=== PATIENT | male | born 1960 | race Caucasian/White ===

== ENCOUNTER 2016-10-10 19:44 | Inpatient (IN) | payer BC, OTHER ==
[~2016-10-10] VITALS: Ht 172.7 cm; Wt 86.2 kg
--- NOTE | 2016-10-10 19:50 | NUR ---
Pre-Admission Note: Patient assessed in intake office at 19:50 on 10/10/2016. Patient is ambulatory with steady gait, stable, A&OX4. Patient states that he is here to safely detox from opiates. VS: 163/97, 83, 98.5, 18, 97% Spo2 on RA. Patient reports 7/10 back pain, reports that he had back surgery this year. Patient reports NKDA/NKFA. Patient instructed on unit protocol of vitals Q4H and COWS/CIWA assessments. Patient verbalized understanding and agreement. Patient also instructed on policy regarding destruction of any controlled substances/prescriptions brought to facility, and handling of all medications. Patient verbalized understanding and agreement. Will complete admission assessment when patient is brought up to unit. Addendum: 10/11/16 at 0141 by CLAYTON LOMAS RN INCORRECT TIME IN ABOVE NOTE: CORRECT TIME IS 21:50
[2016-10-10] MEDS ORDERED: DICYCLOMINE HCL 20 MG TABLET PO PRN (21:45)
[2016-10-10] MEDS ORDERED: MAG HYDROX/AL HYDROX/SIMETH 30 ML LIQUID UDC PO PRN (21:45)
[2016-10-10] MEDS ORDERED: HYDROXYZINE PAMOATE 25 MG CAPSULE PO PRN (21:45)
[2016-10-10] MEDS ORDERED: LORAZEPAM 1 MG TABLET PO PRN (21:45)
[2016-10-10] MEDS ORDERED: ONDANSETRON 4 MG/2 ML VIAL IM PRN (21:45)
[2016-10-10] MEDS ORDERED: ONDANSETRON ODT 4 MG TAB.RAPDIS SL PRN (21:45)
[2016-10-10] MEDS ORDERED: MIRALAX 17 GM POWD.PACK PO PRN (21:45)
[2016-10-10] MEDS ORDERED: IBUPROFEN 600 MG TABLET PO PRN (21:45)
[2016-10-10] MEDS ORDERED: LOPERAMIDE HCL 2 MG CAPSULE PO PRN ×2 (21:45)
--- NOTE | 2016-10-10 22:05 | NUR ---
ADMISSION NOTE: NEW ADMISSION IS A 55 YO MALE [facility] AT [facility]05 ON 10/10/16; PRE-ADMISSION ASSESSMENT COMPLETED INTAKE OFFICE. UDS RESULTED POSITIVE FOR OPIATES AND CANNABINOIDS. VS: 163/97, 83, 98.5, 18, 97% SPO2 ON RA. COWS IS 7: SLIGHTLY INCREASED HR, GOOSEFLESH, ANXIETY, PAIN . HEIGHT IS 5'8 AND WEIGHT BY STANDING SCALE IS 190 LBS. PT REPORTS NKDA/NKFA. PT REPORTS PCP IS DR KING IN [place], AND SURGEON FOR BACK IS DR RODRIGUEZ IN [place]. PT ADMITTED UNDER THE CARE OF DR ZAMORA. PT REPORTS THE FOLLOWING SUBSTANCE USE: PT REPORTS TAKING 80MG DILAUDID DAILY FOR OVER 3 YEARS; PT REPORTS BEING PRESCRIBED DILUADID FOR BACK AND NECK INJURIES AND SURGERY; LAST USE WAS 80MG ON 09/25/16. PT REPORTS THAT WHEN HE RAIN OUT OF DILAUDID, HE BEGAN USING ABOUT 1GM OF IV HEROIN DAILY FOR 5 DAYS; LAST USE WAS 1GM ON 10/09/16. PT REPORTS THAT HE TOOK 10MG METHADONE X1 AT 04:00 ON 10/10/16 TO HOLD HIM OVER UNTIL HE COULD GET INTO DETOX. PT ALSO REPORT THAT HE HAS A PRESCRIPTION FOR SOMA AND CODEINE, BUT ONLY USES ON AN INTERMITTENT, NON-DAILY BASIS BECAUSE HE STATES, "I DON'T LIKE THE WAY THEY MAKE ME FEEL". PT ALSO REPORTS SMOKING AN UNKNOWN AMOUNT OF MARIJUANA ON A DAILY BASIS. PT REPORTS THAT HE SMOKES ABOUT 20 CIGARETTES DAILY, FOR 20+ YEARS. WRITTEN SMOKING CESSATION EDUCATION PROVIDED. PT VERBALIZES UNDERSTANDING. PT REPORTS ATTENDING [facility] IN [place] WHEN HE WAS 21 Y/O. PT REPORTS PMHX OF BACK AND NECK INJURIES R/T FALLS; SURGICAL HX: BACK (2017) AND NECK (2013) SURGERY, HERNIA REPAIR (2001). PT DENIES A HX OF WITHDRAWAL INDUCED SZ. PT IS AMBULATORY WITH STEADY GAIT. PT IS A&OX4. SKIN ASSESSMENT: INTACT. PT DENIES CURRENT OR HX OF SI/HI. LUNGS ARE CTA THROUGHOUT, RESPIRATIONS ARE EVEN AND UNLABORED. PT DENIES COUGH. HEART SOUNDS REGULAR. BOWEL SOUNDS ACTIVE IN ALL QUADRANTS; PT REPORTS LAST BM ON 10/10/16 AND DENIES CONSTIPATION WITH OPIATE ABUSE. ABDOMEN IS SOFT, NON-DISTENDED, NON-TENDER. Addendum: 10/11/16 at 0250 by CLAYTON LOMAS RN Pt reports drinking 6 beers daily during the week and 8-9 beers daily on weekends
[2016-10-10 22:33] VITALS: BP 163/97
[2016-10-10] MEDS ORDERED: LORAZEPAM 1 MG TABLET ONE (22:51)
[2016-10-10] MEDS ORDERED: CLONIDINE HCL 0.1 MG TABLET ONE (22:52)
[2016-10-10] MEDS ORDERED: LORAZEPAM 1 MG TABLET PO ONE (23:00)
[2016-10-10 23:12] LABS: BASOPHILS # (AUTO) 0.1 K/uL (0.0-8.0); BASOPHILS % (AUTO) 0.7 % (0.0-2.0); EOSINOPHILS # (AUTO) 0.3 K/uL (0.0-0.7); EOSINOPHILS % (AUTO) 3.4 % (0.0-7.0); HEMATOCRIT 46.2 % (40-50); HEMOGLOBIN 15.6 G/DL (14.0-18.0); LYMPHOCYTES # (AUTO) 1.9 K/UL (0.8-4.8); LYMPHOCYTES % (AUTO) 20.1 % (20.5-51.5); MEAN CORPUSCULAR HEMOGLOBIN 30.1 UUG (27.0-31.0); MEAN CORPUSCULAR HGB CONC 34 g/dL (32.0-37.0); MEAN CORPUSCULAR VOLUME 88.9 FL (82.0-92.0); MONOCYTES # (AUTO) 0.6 K/UL (0.1-1.30); MONOCYTES % (AUTO) 6.9 % (0.0-11.0); NEUTROPHILS # (AUTO) 6.3 K/UL (1.8-8.9); NEUTROPHILS % (AUTO) 68.9 % (38.5-71.5); PLATELET COUNT (AUTO) 242 K/UL (150-450); RED BLOOD CELL COUNT(AUTO) 5.19 MIL/UL (4.7-6.1); WHITE BLOOD COUNT (AUTO) 9.2 K/UL (4.0-11.2)
[2016-10-10 23:27] LABS: ALANINE AMINOTRANSFERASE 30 U/L (16-63); ALKALINE PHOSPHATASE 93 U/L (50-136); ASPARTATE AMINOTRANSFERASE 17 U/L (15-37); BILIRUBIN,TOTAL 0.4 mg/dL (0.2-1.0); CARBON DIOXIDE 29 mmol/L (21-32); CHLORIDE 102 mmol/L (98-107); CREATININE 0.8 mg/dL (0.6-1.3); GLUCOSE 83 mg/dL (74-106); MAGNESIUM 1.9 mg/dL (1.8-2.4); POTASSIUM 3.9 mmol/L (3.5-5.1); TOTAL PROTEIN, SERUM 7.9 g/dL (6.4-8.2); UREA NITROGEN, BLOOD 15 mg/dL (7-18)
[2016-10-10 23:27] LABS: *AMPHETAMINE, URINE NEGATIVE (NEGATIVE); *BARBITURATE, URINE NEGATIVE (NEGATIVE); *CANNABINOID, URINE POSITIVE (NEGATIVE); *COCCAINE, URINE NEGATIVE (NEGATIVE); *OPIATE, URINE POSITIVE (NEGATIVE); *PHENCYCLIDINE SCREEN,URINE NEGATIVE (NEGATIVE)
[2016-10-10 23:29] LABS: ETHANOL < 3 MG/DL (0-0)
[2016-10-10] MEDS: CLONIDINE HCL 0.1 MG TABLET PO PRN (23:34)
--- NOTE | 2016-10-10 23:34 | NUR ---
PRN Clonidine: Patient c/o anxiety. BP is 163/97. Administered PRN Clonidine as ordered. Will continue to monitor.
[2016-10-11] VITALS: BP 115/81
--- NOTE | 2016-10-11 | NUR ---
COWS Deferred: 00:00 COWS is deferred for sleep. V/S stable. All safety precautions are in place. Will continue to monitor. Addendum: 10/11/16 at 0229 by CLAYTON LOMAS RN Amended: Links added.
--- NOTE | 2016-10-11 00:35 | NUR ---
PRN Reassessment: Pt is in bed with eyes closed. Respirations are even and unlabored. No s/s of acute distress noted. PRN Clonidine effective.
--- NOTE | 2016-10-11 04:00 | NUR ---
V/S Refused, COWS Deferred: Patient refuses 04:00 V/S. COWS is deferred for sleep. All safety precautions are in place. Will continue to monitor Addendum: 10/11/16 at 0417 by CLAYTON LOMAS RN Amended: Links added.
--- NOTE | 2016-10-11 06:56 | NUR ---
End of Shift Note: Pt is a 55 y/o male admitted to [facility] last night for medically-supervised withdrawal from opiates and ETOH. Pt reported a PMHx of neck and back injury with surgical repair (2011, 2016). Pt is a full code. Pt reports NKDA/NKFA. Pt is on a regular diet. Pt reported using 80mg Dilaudid daily and when he ran out, used 1gm IV heroin daily for 5 days, and 10mg Methadone x1. Pt also reported drinking 6-9 beers daily. Pt is not yet on a scheduled medication taper, to assess this morning. Scheduled medication regime managed s/s of withdrawal this shift, in addition to PRN Clonidine for anxiety and elevated BP. Last COWS=7 at 00:00. V/S stable throughout shift. Total fluid intake this shift: 300 ml; output: urine x 2 and BM x 0. Pt is currently in bed and slept 5 hours this shift. All needs have been attended and met. Pt endorsed to day shift nurse.
--- NOTE | 2016-10-11 07:50 | NUR ---
START OF SHIFT NOTE Received pt in bed awake and states he cant sleep he is just laying down. He reports hold/cold flashes and feeling "crappy." PRN Clonidine given per night nurse. COWS 7 per night nurse. He slept 5 hours last night. Encouraged pt to increase fluid intake. Encouraged pt to rest this shift. Will monitor closely.
[2016-10-11 08:00] VITALS: BP 146/92
[2016-10-11] MEDS: METHOCARBAMOL 750 MG TABLET PO PRN ×2 (08:52→20:23)
[2016-10-11] MEDS: CLONIDINE HCL 0.1 MG TABLET PO PRN (08:52)
[2016-10-11] MEDS: MULTIVITAMINS,THERAPEUTIC TABLET PO SCH (08:52)
[2016-10-11] MEDS ORDERED: BUPRENORPHINE HCL 2 MG TAB.SUBL SL PRN (09:00)
[2016-10-11] MEDS ORDERED: TUBERCULIN,PURIF.PROT.DERIV. 5 TU/0.1 ML TEST ID ONE (09:00)
--- NOTE | 2016-10-11 09:00 | NUR ---
PRN MEDICATION CLONIDINE GIVEN FOR C/O HOT AND COLD FLASHES AND ANXIETY. BLOOD PRESSURE 146/92 ROBAXIN GIVEN FOR BODY ACHES 09/03 WILL MONITOR
--- NOTE | 2016-10-11 09:35 | NUR ---
PRN REASSESSMENT Patient resting calmly in bed rr even and unlabored. Bed locked and in lowest position. Call light within reach.
[2016-10-11 12:00] VITALS: BP 133/86
[2016-10-11] MEDS: BUPRENORPHINE HCL 2 MG TAB.SUBL SL SCH ×3 (13:00→20:23)
[2016-10-11 16:00] VITALS: BP 128/82
[2016-10-11] MEDS: KETOROLAC TROMETHAMINE 30 MG INJ IM PRN (17:57)
--- NOTE | 2016-10-11 18:01 | NUR ---
PRN MEDICATION ZOFRAN ODT AND TORADOL IM GIVEN. PT REPORTS BACK PAIN 11/04. PT HAD 1 EPISODE OF EMESIS. WILL REASSESS
--- NOTE | 2016-10-11 18:34 | NUR ---
PRN REASSESSMENT PATIENT REPORTS BACK PAIN DECREASED TO 6/10. HE REPORTS NAUSEA HAS COMPLETELY SUBSIDED. WILL MONITOR.
--- NOTE | 2016-10-11 18:40 | NUR ---
END OF SHIFT NOTE Patient started on Subutex taper this shift and tolerating well. PRN Clonidine, Robaxin, Zofran, Toradol given this shift. Patient has chronic back pain and Toradol helped manage pain this shift. Last COWS 10. Vital signs WNL. Patient reported hot/cold flashes during shift. All needs met. All safety measures in place. Will endorse to night nurse.
[2016-10-11 20:00] VITALS: BP 132/84
--- NOTE | 2016-10-11 20:00 | NUR ---
1999 Patient received awake, alert and ambulating from [facility] in recreation room to his room # [id number]. Gait is steady. Patient responds to nurse's greeting and introduction with, " Pranay, how are you ?" Patient's color is grimes-pink and his skin is clean, warm, dry and intact. Patient's overall appearance is a neat one. Patient is oriented to person, place, day, date, time and his personal situation. Patient states that he has been eating some of his regular diet trays and taking various fluids ad dinora, with only one recent episode of N/V earlier today, for which he was given a PRN medication that he states was very effective for him. Patient states further that he has attended a [facility] today and he has been doing all that is asked of him to do so far, by staff, as related to his therapeutic plan. Patient states that he continues to experience chronic back pain though he has been medicated with Prn meds, with only 'some relief' for the most part. Patient states further that he has had several orthopedic surgeries and he had back surgery earlier this year, 2016. Vital signs are: 97.7-89-18 132/84, O2 Sat 98%, COWS 5. Patient voices no requests for anything at this time and he states that he will call nurse when he is in need of pain medication. Patient is cooperative and verbally appropriate when interacting with nurse, though manner/affect is slightly flat and withdrawn and eye contact is fleeting. Patient was admitted on 10/10/16 for: Heroin, Dilaudid, Methadone, Marijuana, Soma/Codeine withdrawal and he is currently on a Subutex medication taper for withdrawal symptoms, which he is apparently tolerating so far. Bed is locked and in lowest position, bed rails are up X 1 and call light within patient's easy reach.
[2016-10-11] MEDS: ACETAMINOPHEN 325 MG TABLET PO PRN (20:23)
--- NOTE | 2016-10-11 20:23 | NUR ---
PRN MEDICATIONS:Prn Robaxin 750 mg p.o. and Prn Tylenol 650 mg p.o. given per c/o back pain 8/10 pain scale.
[2016-10-11] MEDS ORDERED: LORAZEPAM 2 MG/1 ML VIAL IM PRN (21:00)
[2016-10-11] MEDS ORDERED: LORAZEPAM 1 MG TABLET PO PRN ×2 (21:00)
--- NOTE | 2016-10-11 21:23 | NUR ---
REASSESSMENT PRN MEDICATIONS: Patient is downstairs on hospital patio for smoke break. Unable to reassess patient at this time.
[2016-10-11] MEDS ORDERED: LORAZEPAM 1 MG TABLET PO ONE (21:30)
[2016-10-11] MEDS ORDERED: LORAZEPAM 1 MG TABLET ONE (22:17)
[2016-10-11] MEDS: diphenhydrAMINE 50 MG CAPSULE PO PRN (23:05)
--- NOTE | 2016-10-11 23:05 | NUR ---
PRN MEDICATIONS: Prn Benadryl 50 mg p.o. given for sleep per request and Prn Vistail 50 mg p.o. given per request for c/o anxiety.
[2016-10-12] VITALS: BP 96/59
--- NOTE | 2016-10-12 00:05 | NUR ---
REASSESSMENT PRN MEDICATIONS: Patient is in his bed, resting comfortably with eyes closed and respirations quiet, even, unlabored at 14.
[2016-10-12 04:00] VITALS: BP 123/86
--- NOTE | 2016-10-12 06:30 | NUR ---
07 Addendum: 10/12/16 at 0654 by STEVEN BONILLA RN ERROR CHARTING
--- NOTE | 2016-10-12 06:30 | NUR ---
0630 Patient slept a total of 6 hours and he had 2 voids and no stools. Total intake was 1.055 ml p.o. Prn medications given noted separately per floor protocol. V/SS afebrile, last COWS was 3 at 0400. Patient is presently sleeping comfortably in stable condition, with eyes closed and respirations quiet, even, unlabored at 12.
--- NOTE | 2016-10-12 07:05 | NUR ---
Patient sleeping soundly at this time and not awakened for COWS assessment. Assessment ordered to be done while patient is awake.
[2016-10-12 07:06] LABS: HEPATITIS B SURFACE AG Negative (Negative)
[2016-10-12 08:00] VITALS: BP 138/87
[2016-10-12] MEDS: LORAZEPAM 1 MG TABLET PO SCH ×3 (09:04→21:36)
[2016-10-12] MEDS: FOLIC ACID 1 MG TABLET PO SCH (09:04)
[2016-10-12] MEDS: BUPRENORPHINE HCL 2 MG TAB.SUBL SL SCH ×3 (09:04→21:36)
[2016-10-12] MEDS: MULTIVITAMINS,THERAPEUTIC TABLET PO SCH (09:04)
[2016-10-12] MEDS: THIAMINE HCL 100 MG TABLET PO SCH (09:04)
[2016-10-12 12:00] VITALS: BP 114/76
[2016-10-12] MEDS: LIDOCAINE 5% PATCH TD SCH (13:26)
--- NOTE | 2016-10-12 13:55 | NUR ---
TRANSFER OF CARE TO ADORE LEONARD
--- NOTE | 2016-10-12 14:00 | NUR ---
RESUMED CARE Resumed care of client, all pertinent information provided. Client is a/o x 4, he resting in bed at this time.
[2016-10-12] MEDS: GABAPENTIN 300 MG CAPSULE PO SCH ×2 (15:11→21:36)
[2016-10-12] MEDS: BACLOFEN 10 MG TABLET PO SCH ×2 (15:11→21:36)
[2016-10-12 16:55] VITALS: BP 129/85
--- NOTE | 2016-10-12 19:26 | NUR ---
END OF SHIFT Client is a 55 yo male admitted for withdrawal from opioids and alcohol. He continues on 5 day Ativan/ Subutex taper (day 2), tolerating well, last CIWA 5/COWS 7 @ 1600. He reports NKA full code, regular. Client was compliant with group therapy. Adequate PO intake, client void x 2. Safety measures in place, call light within reach, side rails up x2/padded, bed locked and in low position. Endorsed to incoming nurse
--- NOTE | 2016-10-12 19:35 | NUR ---
START OF SHIFT Pt is a 55 yr old male, A&Ox3. Pt was admitted on 10/10/16 for Opiate/ETOH Dependence and is on 4 day Ativan and 5 day Subutex taper as ordered. Pt did not receive any PRN's during the day. Pt is currently in bed with respirations even and unlabored. Pt stated of feeling "droggy". Pt is educated on fall precautions. Encouraged increase fluid intake. Pt denies any pain or discomfort. Skin is intact, warm and dry to touch. Safety precautions observed. Call light is within reach. Will continue to monitor.
[2016-10-12 20:00] VITALS: BP 128/84
[2016-10-12] MEDS: diphenhydrAMINE 50 MG CAPSULE PO PRN (22:09)
--- NOTE | 2016-10-12 22:09 | NUR ---
PRN GIVEN Pt requested for Benadryl PRN for sleep. Benadryl 50mg PO PRN was given for sleep. Medication lubna well.
--- NOTE | 2016-10-13 00:02 | NUR ---
COWS, CIWA, AND VITAL SIGNS DEFERRED. Pt is currently in bed sleeping with respirations even and unlabored. No acute distress noted. RR is 18. Safety precautions observed. Call light is within reach. Will continue to monitor. Addendum: 10/13/16 at 0006 by ANTONIO NICHOLSON LVN Amended: Links added.
--- NOTE | 2016-10-13 04:11 | NUR ---
COWS, CIWA and VS DEFERRED Pt is asleep at this time with respirations even and unlabored. No acute distress noted. RR is 16. Safety precautions observed. Will continue to monitor. Addendum: 10/13/16 at 0417 by ANTONIO NICHOLSON LVN Amended: Links added.
--- NOTE | 2016-10-13 06:55 | NUR ---
END OF SHIFT Pt is a 55 yr old male, A&Ox3. Pt was admitted on 10/10/16 for Opiate/ETOH Dependence and is on 4 day Ativan and 5 day Subutex taper as ordered. Pt was observed with agitation prior to bedtime. Pt received Benadryl 50mg PO PRN at 2209 for sleep. Medication was effective. Pt slept for 6 hours. Last COWS score was 5 and CIWA score was % at 2200. Skin is intact, warm and dry to touch. No tremors was seen or felt. Safety precautions observed. Call light is within reach.
--- NOTE | 2016-10-13 08:00 | NUR ---
START OF SHIFT Client is a 55 yo male admitted for withdrawal from opioids and alcohol. He is on 5 day Ativan/ Subutex taper (day 3), tolerating well, last CIWA 5/COWS 5 @ 2200. He reports NKA full code, regular. PRN Benadryl for inability to sleep, he slept 6 hrs. Safety measures in place, call light within reach, side rails up x2/padded, bed locked and in low position. Will continue to monitor.
[2016-10-13 08:55] VITALS: BP 102/66
--- NOTE | 2016-10-13 08:57 | NUR ---
Zero induration noted at TB site on L forearm
[2016-10-13] MEDS ORDERED: BUPRENORPHINE HCL 2 MG TAB.SUBL SL SCH (09:00)
--- NOTE | 2016-10-13 09:23 | NUR ---
Therapist prompted client about group times. Client stated he would try to attend groups today.
[2016-10-13] MEDS: LIDOCAINE 5% PATCH TD SCH (09:36)
[2016-10-13] MEDS: FOLIC ACID 1 MG TABLET PO SCH (09:36)
[2016-10-13] MEDS: MULTIVITAMINS,THERAPEUTIC TABLET PO SCH (09:36)
[2016-10-13] MEDS: GABAPENTIN 300 MG CAPSULE PO SCH (09:36)
[2016-10-13] MEDS: BACLOFEN 10 MG TABLET PO SCH (09:36)
[2016-10-13] MEDS: THIAMINE HCL 100 MG TABLET PO SCH (09:36)
[2016-10-13] MEDS: LORAZEPAM 1 MG TABLET PO SCH ×3 (09:36→20:06)
[2016-10-13] MEDS ORDERED: NAPROXEN 500 MG TABLET PO ONE (12:00)
[2016-10-13 12:20] VITALS: BP 149/87
[2016-10-13] MEDS: KETOROLAC TROMETHAMINE 30 MG INJ IM PRN (12:26)
--- NOTE | 2016-10-13 12:26 | NUR ---
PRN Toradol 30mg INJ IM to R deltoid for pain 9/10 on lower back.
--- NOTE | 2016-10-13 12:56 | NUR ---
Reassessment PRN Toradol 30mg INJ IM client reports pain 2/10 on lower back, but tolerable.
[2016-10-13] MEDS: ACETAMINOPHEN 325 MG TABLET PO PRN (14:34)
--- NOTE | 2016-10-13 14:34 | NUR ---
PRN Tylenol 650mg for TATE 07/04.
[2016-10-13] MEDS: BUPRENORPHINE HCL 2 MG TAB.SUBL SL SCH ×2 (14:35→20:05)
[2016-10-13] MEDS: BACLOFEN 20 MG TABLET PO SCH ×2 (14:35→20:05)
--- NOTE | 2016-10-13 15:34 | NUR ---
Reassessment PRN Tylenol 650mg for TATE client reports pain 1/10, but tolerable.
[2016-10-13] MEDS ORDERED: ASPIRIN/ACETAMINOPHEN/CAFFEINE TABLET PO PRN (16:45)
--- NOTE | 2016-10-13 16:48 | NUR ---
PRN Excedrin extra strength for TATE 8/10 frontal area, does not radiate. Encourage to increase fluid intake. Call light within reach.
[2016-10-13 16:55] VITALS: BP 138/93
--- NOTE | 2016-10-13 17:48 | NUR ---
Reassessment PRN Excedrin extra strength for TATE client reports pain 0/10.
--- NOTE | 2016-10-13 18:34 | NUR ---
END OF SHIFT Client is a 55 yo male admitted for withdrawal from opioids and alcohol. He continues on 5 day Ativan/ Subutex taper (day 3), tolerating well, last CIWA 10/COWS 6 @ 1600. He reports NKA full code, regular. PRN Toradol for low back pain, Tylenol and Excedrin for TATE noted effective. Client was compliant with group therapy. Adequate PO intake 2500mL, client void x 4, stool x 1. Safety measures in place, call light within reach, side rails up x2/padded, bed locked and in low position. Endorsed to incoming nurse
--- NOTE | 2016-10-13 19:30 | NUR ---
START OF SHIFT Pt is a 55 yr old male, A&Ox3. Pt was admitted on 10/10/16 for Opiate/ETOH Dependence and is on 4 day Ativan and 5 day Subutex taper as ordered. Pt received Toradol PRN, Tylenol PRN and Excedrin PRN for pain during the day. Medication was mildly effective. Pt denies any anxiety or agitation at this time. Pt continues to c/o neck pain 08/04. Facial grimacing is observed. Will f/u with eMAR. Skin is intact, warm and dry to touch. No tremors seen or felt. Pt denies any n/v. Safety precautions observed. Call light is within reach. Will continue to monitor.
[2016-10-13 20:00] VITALS: BP 157/88
[2016-10-13] MEDS: NAPROXEN 500 MG TABLET PO SCH (20:05)
[2016-10-13] MEDS: diphenhydrAMINE 50 MG CAPSULE PO PRN (22:33)
--- NOTE | 2016-10-13 22:33 | NUR ---
PRN GIVEN Pt requested for Benadryl PRN for sleep. Benadryl 50mg PO PRN was given as ordered for sleep. Medication lubna well. Will continue to monitor.
[2016-10-14] VITALS: BP 144/86
--- NOTE | 2016-10-14 04:00 | NUR ---
CIWA, COWS and VS DEFERRED Pt is asleep at this time with respirations even and unlabored. No acute distress noted. RR at 18. Safety precautions observed. Will continue to monitor. Addendum: 10/14/16 at 0534 by ANTONIO NICHOLSON LVN Amended: Links added.
--- NOTE | 2016-10-14 06:51 | NUR ---
END OF SHIFT Pt is a 55 yr old male, A&Ox3. Pt was admitted on 10/10/16 for Opiate/ETOH Dependence and is on 4 day Ativan and 5 day Subutex taper as ordered. Pt was cooperative with medication regimen. Pt denied any anxiety or agitation at night. Last COWS score was 1 and CIWA score was 3 at 0000. VS are in stable condition. Pt received Benadryl 50mg PO PRN at 2233 for sleep. Medication was effective. Pt slept for 8 hours. Skin is intact, warm and dry to touch. No tremors was seen or felt. Safety precautions observed. Call light is within reach.
--- NOTE | 2016-10-14 08:00 | NUR ---
START OF SHIFT Rcvd endorsement from night nurse, Client is in room, he is a/o X4, he presents with anxious mood, flat affect, he stated "I did not sleep well last night, I was restless." Client denies any N/V/D, SI/HI. Encourage client to increase fluid intake as tolerated to facilitate detox. Encourage client to attend group therapy for skills to maintain sober. Client is a 55 yo male admitted for withdrawal from opioids and alcohol. He is on 5 day Ativan/ Subutex taper (day 4), tolerating well, last CIWA 3/COWS 1 @ 2400. He reports NKA full code, regular. PRN Benadryl for inability to sleep, he slept 8 hrs. Safety measures in place, call light within reach, side rails up x2/padded, bed locked and in low position. Will continue to monitor.
[2016-10-14 08:55] VITALS: BP 113/80
[2016-10-14] MEDS: FAMOTIDINE 20 MG TABLET PO SCH (08:56)
[2016-10-14] MEDS: FOLIC ACID 1 MG TABLET PO SCH (08:58)
[2016-10-14] MEDS: MULTIVITAMINS,THERAPEUTIC TABLET PO SCH (08:58)
[2016-10-14] MEDS: LORAZEPAM 1 MG TABLET PO SCH ×2 (08:58→22:19)
[2016-10-14] MEDS: NAPROXEN 500 MG TABLET PO SCH ×2 (08:58→22:19)
[2016-10-14] MEDS: BACLOFEN 20 MG TABLET PO SCH ×3 (08:59→22:19)
[2016-10-14] MEDS: LIDOCAINE 5% PATCH TD SCH (08:59)
[2016-10-14] MEDS: BUPRENORPHINE HCL 2 MG TAB.SUBL SL SCH ×3 (08:59→22:20)
[2016-10-14] MEDS: THIAMINE HCL 100 MG TABLET PO SCH (09:02)
--- NOTE | 2016-10-14 09:40 | NUR ---
MD notified of duplicate Ativan 1mg scheduled for 0900.
--- NOTE | 2016-10-14 09:45 | NUR ---
Per pharmacist Ativan 1mg dose 3-4 entered in error, and it will automatically drop from the eMAR. C.N notified of duplicate order.
[2016-10-14 12:00] VITALS: BP 121/85
[2016-10-14] MEDS ORDERED: METHYL SALICYLATE/MENTHOL CREAM 28 GM TUBE TOP PRN (13:30)
[2016-10-14] MEDS: ACETAMINOPHEN 325 MG TABLET PO SCH ×2 (15:05→22:19)
--- NOTE | 2016-10-14 16:19 | NUR ---
PRN Abel-Sharma Ultra Cream applied topical to neck and back. Will continue to monitor.
[2016-10-14 16:39] VITALS: BP 133/81
--- NOTE | 2016-10-14 17:19 | NUR ---
Reassessment PRN Abel-Sharma Ultra Cream client report pain level 2/10 and tolerable from previous 6/10 pain.
--- NOTE | 2016-10-14 19:20 | NUR ---
END OF SHIFT Client is a 55 yo male admitted for withdrawal from opioids and alcohol. He continues on 5 day Ativan/ Subutex taper (day 4), tolerating well, last CIWA 5/COWS 5 @ 1600. He reports NKA full code, regular. PRN Abel-Sharma cream for neck/back pain, noted effective. Client was compliant with group therapy. Adequate PO intake 3251mL, client void x 3, stool x 2. Safety measures in place, call light within reach, side rails up x2/padded, bed locked and in low position. Endorsed to incoming nurse
--- NOTE | 2016-10-14 19:21 | NUR ---
Start of shift note Received report from day shift nurse. Pt is a 55 yo male, A+Ox4, presenting to [facility] for Opiate/Meth/ETOH dependence. Pt has NKA, is on Full Code status, and on Regular diet. Pt is on Fall precautions. Pt has HX of Back/Neck SX, Hernia repair, and Hep C+. Pt is on 5 day Subutex and 4 day Ativan tapers, tolerated well. No s/s of distress noted at this time. Respirations even and unlabored. Will continue to monitor.
[2016-10-14] MEDS: CLONIDINE HCL 0.1 MG TABLET PO PRN (19:38)
--- NOTE | 2016-10-14 19:38 | NUR ---
PRN Clonidine Pt noted with elevated b/p= 167/88. PRN Clonidine given and tolerated well. Will reassess within 1 HR. Will continue to monitor.
[2016-10-14 20:01] VITALS: BP 167/98
--- NOTE | 2016-10-14 20:35 | NUR ---
PRN Clonidine Reassessment Medication effective. B/P 143/85. No s/s of ASe/distress noted at this time. Respirations even and unlabored. Will continue to monitor.
[2016-10-14] MEDS: diphenhydrAMINE 50 MG CAPSULE PO PRN (22:41)
--- NOTE | 2016-10-14 22:41 | NUR ---
PRN Benadryl Pt c/o inability to sleep and requested for PRN Benadryl. Medication given and tolerated well. Will reassess within 1 HR. Will continue to monitor.
--- NOTE | 2016-10-14 23:40 | NUR ---
PRN Benadryl Reassessment Medication effective. No s/s of ASE/distress noted at this time. Respirations even and unlabored. Will continue to monitor.
[2016-10-15 00:42] VITALS: BP 143/81
[2016-10-15 04:33] VITALS: BP 134/77
--- NOTE | 2016-10-15 06:57 | NUR ---
End of shift note Pt is a 55 yo male, A+Ox4, presenting to [facility] for Opiate/Meth/ETOH dependence. Pt has NKA, is on Full Code status, and on Regular diet. Pt is on Fall precautions. Pt has HX of Back/Neck SX, Hernia repair, and Hep C+. Pt is on 5 day Subutex and 4 day Ativan tapers, tolerated well. Pt was given PRN Clonidine @1938 and PRN Benadryl @2241. Pt slept for a total of 8 HRS. Last COWS: 2 and Last CIWA: 1 @0400. No s/s of distress noted at this time. Respirations even and unlabored. Will endorse to day shift nurse.
--- NOTE | 2016-10-15 07:30 | NUR ---
START OF SHIFT Pt is a 55 yr old male, A&Ox3. Pt was admitted on 10/10/16 for Opiate/ETOH Dependence and is on 4 day Ativan and 5 day Subutex taper as ordered. Pt received Clonidine 0.1mg PRN for increase BP, medication was effective. Pt also received Benadryl PRN for sleep. Pt slept for 8 hrs. Last COWS score was 2, CIWA score was 1 at 0400. Pt denies any anxiety or agitation at this time. Pt c/o of mild muscle aching but is able to lubna pain level. Skin is intact, warm and dry to touch. No tremors seen or felt. Pt denies any n/v. Safety precautions observed. Call light is within reach. Will continue to monitor.
[2016-10-15 08:00] VITALS: BP 133/74
[2016-10-15] MEDS ORDERED: LORAZEPAM 1 MG TABLET PO SCH (09:00)
[2016-10-15] MEDS ORDERED: BUPRENORPHINE HCL 2 MG TAB.SUBL SL SCH (09:00)
[2016-10-15] MEDS: LIDOCAINE 5% PATCH TD SCH (09:16)
[2016-10-15] MEDS: AMLODIPINE 5 MG TABLET PO SCH (09:17)
[2016-10-15] MEDS: NAPROXEN 500 MG TABLET PO SCH ×2 (09:17→21:51)
[2016-10-15] MEDS: FOLIC ACID 1 MG TABLET PO SCH (09:17)
[2016-10-15] MEDS: MULTIVITAMINS,THERAPEUTIC TABLET PO SCH (09:17)
[2016-10-15] MEDS: THIAMINE HCL 100 MG TABLET PO SCH (09:17)
[2016-10-15] MEDS: FAMOTIDINE 20 MG TABLET PO SCH (09:17)
[2016-10-15] MEDS: ACETAMINOPHEN 325 MG TABLET PO SCH ×3 (09:17→21:50)
[2016-10-15] MEDS: BACLOFEN 20 MG TABLET PO SCH ×3 (09:17→21:50)
[2016-10-15] MEDS: KETOROLAC TROMETHAMINE 30 MG INJ IM PRN ×2 (10:32→17:25)
--- NOTE | 2016-10-15 10:32 | NUR ---
PRN GIVEN Pt c/o sever neck pain 10/04. Toradol 30mg IM was given as ordered. Medication lubna well. Encouraged increase fluid intake. Will continue to monitor.
--- NOTE | 2016-10-15 11:35 | NUR ---
PRN RE-ASSESSMENT Toradol was mildly effective. Pt continues to c/o neck pain 08/04. Encouraged increase fluid intake. Will continue to monitor.
[2016-10-15 12:00] VITALS: BP 134/89
[2016-10-15 12:50] LABS: *AMPHETAMINE, URINE NEGATIVE (NEGATIVE); *BARBITURATE, URINE NEGATIVE (NEGATIVE); *CANNABINOID, URINE POSITIVE (NEGATIVE); *COCCAINE, URINE NEGATIVE (NEGATIVE); *OPIATE, URINE NEGATIVE (NEGATIVE); *PHENCYCLIDINE SCREEN,URINE NEGATIVE (NEGATIVE)
[2016-10-15] MEDS ORDERED: LIDO30AD10 TD (12:52)
[2016-10-15] MEDS ORDERED: HYDR-3895 PO (12:52)
[2016-10-15] MEDS ORDERED: DIPH50CA37 PO (12:52)
[2016-10-15] MEDS ORDERED: FAMO20TA8 PO (12:52)
[2016-10-15] MEDS ORDERED: ACET325T53 PO (12:52)
[2016-10-15] MEDS ORDERED: BACL20TA PO (12:52)
[2016-10-15] MEDS ORDERED: NAPR500T3 PO (12:52)
[2016-10-15] MEDS ORDERED: DICY20TA28 PO (12:52)
[2016-10-15] MEDS ORDERED: AMLO5TAB2 PO (12:52)
[2016-10-15] MEDS ORDERED: CLON0.1T14 PO (12:56)
[2016-10-15 16:30] VITALS: BP 135/83
--- NOTE | 2016-10-15 17:25 | NUR ---
PRN MEDICATION GIVEN Pt c/o neck and lower back pain 11/04. Toradol 30ml IM PRN was given as order. Medication lubna well. Encouraged increase fluid intake. Will continue to monitor.
--- NOTE | 2016-10-15 18:25 | NUR ---
PRN RE-ASSESSMENT Toradol PRN was effective. Pain subsided to 6/10. Encouraged increase fluid intake.
--- NOTE | 2016-10-15 18:41 | NUR ---
END OF SHIFT Pt is a 55 yr old male, A&Ox3. Pt was admitted on 10/10/16 for Opiate/ETOH Dependence and has completed 4 day Ativan and 5 day Subutex taper as ordered. Pt has been cooperative with medication regimen and plan of care. Last COWS score was 2 and CIWA score is 1 at 1600. Pt denies any anxiety or agitation at this time. Skin is intact, warm and dry to touch. No tremors was seen or felt. Pt has been c/o neck pain throughout the day. Pt received Toradol 30ml x2 at 1032 and 1725 for sever pain. Medication was effective. Encouraged increase fluid intake. Safety precautions observed. Call light is within reach.
--- NOTE | 2016-10-15 19:15 | NUR ---
START OF SHIFT Received 55 year old male patient admitted on 10/10/16 for Heroin, dilaudid, methadone, Marijuana and intermittent use of Soma and Codeine. Pt is full code with NKA. He reports a PMHx of HepC +, back surgery in 2017, Neck surgery in 2013 and Hernia Repair in 2001. He reports using Heroin IV 1 gram daily for 4-5 days. Last dose was 1 gram on 10/09/16. Dilaudid PO 80 mg daily for 3 years. Last dose was on 09/25/16. Methadone PO 10 mg intermittently. Last dose was 10 mg on 10/10/16. Marijuana intermittently, Soma and Codeine intermittently. Pt completed his 5 day Subutex and 4 day Ativan taper started on 10/12/16 and tolerated well. Per endorsement, pt received PRN Toradol x2. He is scheduled to be DC tomorrow to [facility]. Pt is alert and oriented x4, breathing is even and unlabored. Safety measures in place. Will continue to monitor.
[2016-10-15 20:00] VITALS: BP 130/83
[2016-10-15] MEDS: diphenhydrAMINE 50 MG CAPSULE PO PRN (22:24)
--- NOTE | 2016-10-15 22:24 | NUR ---
PRN BENADRYL Pt complains of inability to sleep. PRN Benadryl administered as ordered. Breathing is even and unlabored, safety measures in place. Will continue to monitor effectiveness.
--- NOTE | 2016-10-15 23:24 | NUR ---
PRN BENADRYL REASSESSMENT PRN medication ineffective. Pt still awake one hour after medication was administered. Safety measures in place. Will continue to monitor.
[2016-10-16] VITALS: BP 153/83
[2016-10-16] MEDS: METHOCARBAMOL 750 MG TABLET PO PRN (00:10)
--- NOTE | 2016-10-16 00:10 | NUR ---
PRN ROBAXIN Pt complains of body aches. PRN Robaxin administered as ordered. Breathing even and unlabored, safety measures in place. Will continue to monitor.
--- NOTE | 2016-10-16 01:10 | NUR ---
PRN ROBAXIN REASSESSMENT PRN medication somewhat effective. Pt still complains of neck pain. Will continue to monitor.
--- NOTE | 2016-10-16 01:53 | NUR ---
PRN TORADOL Pt complains of neck pain 12/04. PRN Toradol administered as ordered. Breathing even and unlabored, safety measures in place. Will continue to monitor effectiveness.
[2016-10-16] MEDS: KETOROLAC TROMETHAMINE 30 MG INJ IM PRN (01:55)
--- NOTE | 2016-10-16 02:53 | NUR ---
PRN TORADOL REASSESSMENT PRN medication effective. Pt lying in bed with eyes closed noted to be asleep. No facial grimacing. Respirations 16, breathing even and unlabored. Safety measures in place. Will monitor.
--- NOTE | 2016-10-16 04:00 | NUR ---
VITALS REFUSED, COWS/CIWA DEFERRED 0400 vitals refused. COWS and CIWA deferred d/t pt lying in bed with eyes closed noted to be asleep. Respirations 16, breathing even and unlabored, safety measures in place. Will monitor.
--- NOTE | 2016-10-16 07:19 | NUR ---
END OF SHIFT Pt is a 55 year old male patient admitted on 10/10/16 for Heroin, dilaudid, methadone, Marijuana and intermittent use of Soma and Codeine. Pt is full code with NKA. He reports a PMHx of HepC +, back surgery in 2016, Neck surgery in 2013 and Hernia Repair in 2001. He completed his 5 day Subutex and 4 day Ativan taper. He is scheduled to be DC today to [facility]. At 2224 he received PRN Benadryl, at 0010 he received PRN Robaxin and at 0153 he received PRN Toradol. He slept a total of 4 hrs, Intake: 1419 mL, Void: x2, BM:0, COWS:3, CIWA:3. Pt remains alert and oriented x4, breathing is even and unlabored. Safety measures in place. Endorsed to oncoming shift.
--- NOTE | 2016-10-16 07:48 | NUR ---
START OF SHIFT Pt is a 55 yr old male, A&Ox3. Pt was admitted on 10/10/16 for Opiate/ETOH Dependence and has completed 4 day Ativan and 5 day Subutex taper as ordered. Pt received Toradol PRN and Robaxin PRN for neck pain. Medication was mildly effective. Pt continues to c/o of neck pain this morning 05/04. Pt also received Benadryl PRN for sleep. Pt slept for 4 hrs. Last COWS score was 3, CIWA score was 3. Pt denies any anxiety or agitation at this time. Skin is intact, warm and dry to touch. No tremors seen or felt. Pt denies any n/v. Pt is to be discharged to [facility]. Urine drug screen is complete. Safety precautions observed. Call light is within reach. Will continue to monitor.
[2016-10-16 08:00] VITALS: BP 138/93
[2016-10-16 08:53] VITALS: BP 138/93
[2016-10-16] MEDS: BACLOFEN 20 MG TABLET PO SCH (08:53)
[2016-10-16] MEDS: FAMOTIDINE 20 MG TABLET PO SCH (08:53)
[2016-10-16] MEDS: AMLODIPINE 5 MG TABLET PO SCH (08:53)
[2016-10-16] MEDS: NAPROXEN 500 MG TABLET PO SCH (08:53)
[2016-10-16] MEDS: FOLIC ACID 1 MG TABLET PO SCH (08:53)
[2016-10-16] MEDS: ACETAMINOPHEN 325 MG TABLET PO SCH (08:54)
[2016-10-16] MEDS: THIAMINE HCL 100 MG TABLET PO SCH (08:54)
[2016-10-16] MEDS: LIDOCAINE 5% PATCH TD SCH (08:54)
[2016-10-16] MEDS: MULTIVITAMINS,THERAPEUTIC TABLET PO SCH (08:54)
--- NOTE | 2016-10-16 09:34 | NUR ---
DISCHARGE NOTE Pt is a 55 yr old male, A&Ox3. Pt was admitted on 10/10/16 for Opiate/ETOH Dependence and has completed 4 day Ativan and 5 day Subutex taper as ordered. Pt has been cooperative with plan of care. Pt refused to take all 0900 medication as scheduled. Pt was educated educated on medication regimen. Last COWS score was 1 CIWA score was 0 at 0800. Pt was educated on discharge package and prescriptions. Pt was able to verbalize understanding. Pt left the unit at 0923 in stable condition with all belongings and valuables.
== END 2016-10-16 09:23 | disposition other institution (70) | DRG 895 ==
LOC: SRC 21:19
PROVIDERS: ADMIT Internal Medicine; ATTEND Internal Medicine
PROC: HZ2ZZZZ Detoxification Services for Substance Abuse Treatment (ICD-10-PCS; principal; 2016-10-10)
PROC: HZ41ZZZ Group Counseling for Substance Abuse Treatment, Behavioral (ICD-10-PCS; 2016-10-12)
PROC: HZ31ZZZ Individual Counseling for Substance Abuse Treatment, Behavioral (ICD-10-PCS; 2016-10-13)
DX: F11.23 Opioid dependence with withdrawal (principal); I15.9 Secondary hypertension, unspecified; F10.230 Alcohol dependence with withdrawal, uncomplicated; Y90.9 Presence of alcohol in blood, level not specified; F17.210 Nicotine dependence, cigarettes, uncomplicated; G89.29 Other chronic pain; M50.80 Other cervical disc disorders, unspecified cervical region; F12.90 Cannabis use, unspecified, uncomplicated; M54.5 Low back pain; F13.10 Sedative, hypnotic or anxiolytic abuse, uncomplicated; Z20.5 Contact with and (suspected) exposure to viral hepatitis; Z98.890 Other specified postprocedural states
CPT/HCPCS: 36415; 70030-TC; 80307; 80349; 80361; 83735; 85025; 86592; 86705; 86803; 87340; 87806; A4663; G0480; J1885; Q0162; Q0163